=== PATIENT | male | born 2000 ===

== ENCOUNTER 2023-07-07 10:15 | Emergency (ER) | payer MEDICAID ==
[~2023-07-07] VITALS: Ht 185.4 cm; Wt 77.3 kg
[2023-07-07 11:57] VITALS: BP 131/71; PULSE 59; RESP 16; TEMP 98.4
[2023-07-07] MEDS ORDERED: IBUP-1492 PO (11:58)
== END 2023-07-07 12:20 | disposition home or self-care (01) ==
LOC: EMS 10:21
DX: S93.402A Sprain of unspecified ligament of left ankle, initial encounter (principal); S80.02XA Contusion of left knee, initial encounter; F17.210 Nicotine dependence, cigarettes, uncomplicated; Y08.89XA Assault by other specified means, initial encounter; Y93.89 Activity, other specified; Y92.89 Other specified places as the place of occurrence of the external cause; Y99.8 Other external cause status
CPT/HCPCS: 29515; 99284; 73562-TC; 73590-TC; 73610-TC; Z7502